=== PATIENT | male | born 1975 | race Caucasian/White ===

== ENCOUNTER 2017-04-05 14:07 | Emergency (ER) | payer BC ==
[~2017-04-05] VITALS: Ht 177.8 cm; Wt 92.0 kg
[2017-04-05 17:00] VITALS: BP 140/89
[2017-04-05] MEDS ORDERED: FLUORESCEIN SODIUM 1MG/STRIP OP ONE (18:00)
[2017-04-05] MEDS ORDERED: TETRACAINE 0.5% OPHTH DROPS 4ML OP ONE (18:00)
== END 2017-04-05 18:58 | disposition left against medical advice (07) ==
LOC: ER 14:07
DX: H10.9 Unspecified conjunctivitis (principal)
CPT/HCPCS: 99283; Z7610